=== PATIENT | male | born 1995 | race American Indian/Alaskan Native ===

== ENCOUNTER 2018-11-26 20:39 | Inpatient (IN) | payer BC ==
--- NOTE | 2018-11-26 21:21 | Emergency Department Report ---
Blank Doc - Documentation Documentation: This is a 23-year-old male that presents with URI symptoms. This initial assessment/diagnostic orders/clinical plan/treatment(s) is/are subject to change based on patient's health status, clinical progression and re- assessment by fellow clinical providers in the ED. Further treatment and workup at subsequent clinical providers discretion. Patient/guardians urged not to elope from the ED as their condition may be serious if not clinically assessed and managed. Initial orders include: 1- Patient sent to [facility] for further evaluation and treatment 2- CXR
[2018-11-26] MEDS ORDERED: DECADRON IM ONE (21:24)
[2018-11-26] MEDS: ATROVENT IH ONE ×2 (21:37→21:53)
[2018-11-26] MEDS: PROVENTIL IH ONE ×2 (21:37→21:49)
--- NOTE | 2018-11-26 23:06 | XRay Report ---
PROCEDURE: XR CHEST ROUTINE 2V TECHNIQUE: 2 views HISTORY: cough COMPARISONS: None FINDINGS: Heart and mediastinum are normal. Lungs are clear. There is no focal infiltrate. No pleural effusion or pneumothorax. Soft tissue and skeletal structures are intact. IMPRESSION: Normal chest x-ray. This document is electronically signed by Joel Lange MD., November 26 2018 11:04:19 PM ET
[2018-11-27] MEDS ORDERED: DUONEB *Not for PRN Use IH ONE (01:14)
[2018-11-27] MEDS ORDERED: MAGNESIUM SULFATE 2GM/50ML 2 GM/50 ML BAG IV ONE (01:15)
--- NOTE | 2018-11-27 01:18 | Emergency Department Report ---
- General Chief Complaint: Upper Respiratory Infection Stated Complaint: TEDDY/BAD COUGH/BODYACHE Time Seen by Provider: 11/26/18 21:20 Source: patient Mode of arrival: Ambulatory Limitations: No Limitations - History of Present Illness Initial Comments: Pt is a 23 yo male who presents to the ED with c/o a cough that began two weeks ago. He has associated mucus production and chest discomfort only with coughing. He has wheezing, congestion, and SOB. He states he was seen at [place] about two weeks ago and given an albuterol inhaler but has not been tested for asthma with PFTs. He states he used his albuterol inhaler once today. He denies any PMHx. He does not have a PCP. Pt is a smoker. - Related Data Allergies Allergy/AdvReac Type Severity Reaction Status Date / Time No Known Allergies Allergy Verified 11/27/18 04:16 ED Review of Systems ROS: Stated complaint: TEDDY/BAD COUGH/BODYACHE Other details as noted in HPI Comment: All other systems reviewed and negative ED Past Medical Hx - Past Medical History Previous Medical History?: No - Surgical History Past Surgical History?: No - Social History Smoking Status: Current Every Day Smoker Substance Use Type: None ED Physical Exam - General Limitations: No Limitations General appearance: alert, in no apparent distress - Head Head exam: Present: atraumatic, normocephalic - Eye Eye exam: Present: normal appearance - ENT ENT exam: Present: mucous membranes moist - Respiratory Respiratory exam: Present: respiratory distress (moderate), wheezes, rales (at the bases ). Absent: rhonchi, stridor, chest wall tenderness, accessory muscle use, decreased breath sounds, prolonged expiratory (mild expiratory wheezing) - Cardiovascular Cardiovascular Exam: Present: regular rate, normal rhythm, normal heart sounds. Absent: systolic murmur, rubs, gallop - Neurological Exam Neurological exam: Present: alert, oriented X3 - Psychiatric Psychiatric exam: Present: normal affect, normal mood - Skin Skin exam: Present: warm, dry, intact ED Course Vital Signs 11/26/18 11/26/18 11/26/18 21:20 21:48 22:16 Temperature 98 F Pulse Rate 62 Pulse Rate [ 56 L 94 H Bilateral Throughout] Respiratory 20 Rate Respiratory 19 21 Rate [Bilateral Throughout] Blood Pressure 118/78 Blood Pressure [Right] O2 Sat by Pulse Oximetry 11/27/18 11/27/18 11/27/18 01:24 01:48 03:00 Temperature Pulse Rate 112 H Pulse Rate [ 68 72 Bilateral Throughout] Respiratory 18 Rate Respiratory 21 20 Rate [Bilateral Throughout] Blood Pressure Blood Pressure [Right] O2 Sat by Pulse 98 Oximetry 11/27/18 11/27/18 04:57 05:23 Temperature 98.4 F Pulse Rate 106 H 92 H Pulse Rate [ Bilateral Throughout] Respiratory 17 17 Rate Respiratory Rate [Bilateral Throughout] Blood Pressure Blood Pressure 115/69 [Right] O2 Sat by Pulse 94 96 Oximetry - Reevaluation(s) Reevaluation #1: 11/27/18 01:19 pt given nebulizer tx in triage, still has mild wheeze on exam, will give neb tx and magnesium Reevaluation #2: 11/27/18 02:43 given another neb tx and magnesium, will admit to hospitalist for further evaluation. - Consultations Consultation #1: 11/27/18 03:[address] Pitts, hospitalist who will admit patient and resume care. ED Medical Decision Making - Lab Data oxygen saturation is 98% on RA - Radiology Data Radiology results: report reviewed HISTORY: cough COMPARISONS: None FINDINGS: Heart and mediastinum are normal. Lungs are clear. There is no focal infiltrate. No pleural effusion or pneumothorax. Soft tissue and skeletal structures are intact. IMPRESSION: Normal chest x-ray. This document is electronically signed by Joel Lange MD., November 26 2018 11:04:19 PM ET - Medical Decision Making Pt is a 23 yo male who presents to the ED with c/o a cough that began two weeks ago. He has associated mucus production and chest discomfort only with coughing. He has wheezing, congestion, and SOB. He states he was seen at [place] about two weeks ago and given an albuterol inhaler but has not been tested for asthma with PFTs. He states he used his albuterol inhaler once today. He denies any PMHx. He does not have a PCP. Pt is a smoker. CXR with hyperinflation otherwise no acute process. Pt given neb treatments x2, dexamethasone 10 mg, ceftriazone, and 2g of magnesium. pt with continued wheezing and decreased air movement. pt will be admitted for asthma exacerbation and acute bronchitis to Dr. Pitts, Hospitalist for further management. - Differential Diagnosis asthma exacerbation, bronchitis, PNA, URI, Viral syndrome Critical care attestation.: If time is entered above; I have spent that time in minutes in the direct care of this critically ill patient, excluding procedure time. ED Disposition Clinical Impression: Bronchitis Asthma exacerbation Qualifiers: Asthma severity: unspecified severity Asthma persistence: unspecified Qualified Code(s): J45.901 - Unspecified asthma with (acute) exacerbation Disposition: OP ADMIT IP TO THIS HOSP Is pt being admited?: Yes Does the pt Need Aspirin: No Condition: Stable Time of Disposition: 03:13
[2018-11-27] MEDS ORDERED: ROCEPHIN IM ONE (02:41)
[2018-11-27] MEDS ORDERED: XYLOCAINE 1% MPF 5 mL INFILTRATI ONE (02:41)
[2018-11-27] MEDS ORDERED: SODIUM CHLORIDE FLUSH SYRINGE 10 ML IV PRN (04:05)
[2018-11-27] MEDS ORDERED: TYLENOL PO PRN (04:05)
[2018-11-27] MEDS ORDERED: ZOFRAN IV PRN (04:05)
--- NOTE | 2018-11-27 04:08 | History and Physical Report ---
History of Present Illness Date of examination: 11/27/18 History of present illness: 23-year-old man comes emergency room complaining of shortness of breath over the last 3 months. Also complaining of cough productive of yellow phlegm, body aches, wheezing. He stated he was seen by a physician who gave him Hubert zambrano, he had mild relief of his symptoms Review of systems Constitutional: no weight loss, chills, fever Ears, eyes, nose, mouth and throat: no nasal congestion, no nasal discharge, no sinus pressure, no vision change, no red eye. Neck: No neck pain or rigidity. Cardiovascular: no palpitations, chest pain Respiratory: + cough, shortness of breath Gastrointestinal: no hematochezia, abdominal pain Genitourinary : no frequency , no hematuria Musculoskeletal: no joint swelling or muscle ache Integumentary: no rash, no pruritis Neurological: no parathesias, no focal weakness Endocrine: no cold or heat intolerance, no polyuria or polydipsia Hematologic/Lymphatic: no easy bruising, no easy bleeding, no gland swelling Allergic/Immunologic: no urticaria, no angioedema. PAST MEDICAL HISTORY: None PAST SURGICAL HISTORY: None SOCIAL HISTORY: Denies alcohol, drugs, +tobacco FAMILY HISTORY: Hypertension Medications and Allergies Allergies Allergy/AdvReac Type Severity Reaction Status Date / Time No Known Allergies Allergy Verified 11/27/18 04:16 Active Meds: Active Medications Acetaminophen (Tylenol) 650 mg PO Q4H PRN PRN Reason: Pain MILD(1-3)/Fever >100.5/GONZALEZ Albuterol/Ipratropium (Duoneb *Not For Prn Use*) 1 ampul IH Q6HRT [facility] Enoxaparin Sodium (Lovenox) 30 mg SUB-Q QDAY [facility] Methylprednisolone Sodium Succinate (Solu-Medrol) 125 mg IV Q6H [facility] Ondansetron HCl (Zofran) 4 mg IV Q8H PRN PRN Reason: Nausea And Vomiting Oxycodone/Acetaminophen (Percocet 5/325) 1 tab PO Q6H PRN PRN Reason: Pain, Moderate (4-6) Sodium Chloride (Sodium Chloride Flush Syringe 10 Ml) 10 ml IV BID [facility] Sodium Chloride (Sodium Chloride Flush Syringe 10 Ml) 10 ml IV PRN PRN PRN Reason: LINE FLUSH Exam - Physical Exam Narrative exam: General Apperance: The patient lying in bed, breathing comfortable HEENT: Normocephalic, atraumatic. Pupils equally round and reactive to light, EOMI, no sclericterus or JVD or thyromegaly or nodule. , no carotid bruit, mucous membranes moist, no exudate or erythema Heart: S1-S2, regular is rhythm Lungs: Wheezing bilaterally, breathing comfortable Abdomen: Positive bowel sounds, soft, nontender, nondistended, no organomegaly Extremities: No edema cyanosis clubbing Skin: no rash, nodule, warm and dry Neuro: cranial nerves 2-12 intact, speech is fluent, motor/sensory intact - Constitutional Vitals: Temp Pulse Resp BP Pulse Ox 98 F 72 20 118/78 11/26/18 21:20 11/27/18 01:48 11/27/18 01:48 11/26/18 21:20 Results - Imaging and Cardiology Chest x-ray: image reviewed Assessment and Plan Assessment Acute asthma exacerbation Plan Admit to medicine Sarcoidosis steroids, Zithromax, nebulizer treatments, DVT prophylaxis
[2018-11-27] MEDS ORDERED: SOLU-Medrol ONE (05:28)
[2018-11-27] MEDS: SOLU-Medrol IV SCH ×6 (05:28→23:42)
[2018-11-27] MEDS: DUONEB *Not for PRN Use IH SCH ×3 (08:29→20:22)
[2018-11-27] MEDS ORDERED: ZITHROMAX 500 MG in NACL 0.9% 250ML 250 ML IV SCH (10:00)
[2018-11-27] MEDS: SODIUM CHLORIDE FLUSH SYRINGE 10 ML IV SCH ×2 (11:46→22:00)
[2018-11-27] MEDS: LOVENOX SUB-Q SCH (11:46)
[2018-11-27] MEDS ORDERED: PROVENTIL IH PRN (12:00)
[2018-11-27 15:07] LABS: BUN/Creatinine Ratio 13; Blood Urea Nitrogen 12 mg/dL (9-20); Calcium 9.7 mg/dL (8.4-10.2); Hemolysis Index 13
--- NOTE | 2018-11-27 17:05 | Cat Scan Report ---
PROCEDURE: CT ANGIO CHEST HISTORY: SOB FINDINGS: Contrast-enhanced CT angiography of the chest was performed following the intravenous administration of iodinated contrast. Sagittal and coronal MIP three-dimensional reformatted images were generated. The examination is somewhat limited by respiratory motion. The peripheral arterial vessels in particu lar are not well-evaluated, but no CT evidence of pulmonary thromboembolic disease is seen. There is no aortic dissection. There is no consolidative pulmonary infiltrate. There is no pleural or pericardial effusion. In the upper abdomen the adrenal glands are within normal limits. The visualized portion of the liver and spleen are unremarkable. IMPRESSION: No CT evidence of pulmonary thromboembolic disease This document is electronically signed by Benjamin Siddiqui MD., November 27 2018 05:03:35 PM ET
--- NOTE | 2018-11-27 17:35 | Progress Note ---
Assessment and Plan Assessment and plan: Patient is a 23 yo man h/o tobacco dependency and without chronic medical problems who presented with severe sob. He was admitted for asthma exacerabation. CTA chest: unremarkable -Acute asthma exacerbation: treat with steroids, BD -Tobacco dependency: drug counselor on stopping prolonged inpatient services 32 minutes History Interval history: Patient was seen and examined. Follow-up on current diagnosis of sob, still severe. Overnight uneventful. Patient denies any chest pain, nausea/vomiting or severe headaches. Imaging, nursing note, chart, labs and old chart reviewed. Discussed with patient. Hospitalist Physical - Physical exam Narrative exam: Gen: WDWN, NAD, Awake, Alert, Orientated HEENT: NCAT, EOMI, PERRL, OP Clear Neck: supple, no adenopathy, no thyromegaly, no JVD CVS/Heart: RRR, normal S1S2, pulses present bilaterally Chest/Lungs: diminished and wheezing bilateral, Symmetrical chest expansion, good air entry bilaterally GI/Abdomen: soft, NTND, good bowel sounds, no guarding or rebound /Bladder: no suprapubic tenderness, no CVA or paraspinal tenderness Extermity/Skin: no c/c/e, no obvious rash MSK: FROM x 4 Neuro: CN 2-12 grossly intact, no new focal deficits Psych: calm - Constitutional Vitals: Temp Pulse Resp BP Pulse Ox 98.6 F 82 18 145/69 97 11/27/18 12:17 11/27/18 13:54 11/27/18 13:54 11/27/18 12:17 11/27/18 13:33 Results - Labs CBC & Chem 7: 11/27/18 14:00 Labs: Laboratory Last Values Sodium 141 mmol/L (137-145) 11/27/18 14:00 Potassium 4.0 mmol/L (3.6-5.0) 11/27/18 14:00 Chloride 101.6 mmol/L (98-107) 11/27/18 14:00 Carbon Dioxide 25 mmol/L (22-30) 11/27/18 14:00 Anion Gap 18 mmol/L 11/27/18 14:00 BUN 12 mg/dL (9-20) 11/27/18 14:00 Creatinine 0.9 mg/dL (0.8-1.5) 11/27/18 14:00 Estimated GFR > 60 ml/min 11/27/18 14:00 BUN/Creatinine Ratio 13 % 11/27/18 14:00 Glucose 135 mg/dL (75-100) H 11/27/18 14:00 Calcium 9.7 mg/dL (8.4-10.2) 11/27/18 14:00 Active Medications - Current Medications Current Medications: Generic Name Dose Route Start Last Admin Trade Name Freq PRN Reason Stop Dose Admin Acetaminophen 650 mg 11/27/18 04:05 Tylenol PO Q4H PRN Pain MILD(1-3)/Fever >100.5/GONZALEZ Albuterol 2.5 mg 11/27/18 12:00 11/27/18 11:15 Proventil IH 2.5 mg Q4HRT PRN Administration Shortness Of Breath Albuterol/Ipratropium 1 ampul 11/27/18 08:00 11/27/18 13:44 Duoneb *Not For Prn Use* IH 1 ampul Q6HRT ROSANGELA Administration Azithromycin 500 mg 11/28/18 10:00 Zithromax PO 12/01/18 10:01 QDAY ROSANGELA Enoxaparin Sodium 30 mg 11/27/18 10:00 11/27/18 11:46 Lovenox SUB-Q 30 mg QDAY ROSANGELA Administration Methylprednisolone Sodium Succinate 125 mg 11/27/18 05:00 11/27/18 11:46 Solu-Medrol IV 125 mg Q6HR ROSANGELA Administration Ondansetron HCl 4 mg 11/27/18 04:05 Zofran IV Q8H PRN Nausea And Vomiting Oxycodone/Acetaminophen 1 tab 11/27/18 04:05 Percocet 5/325 PO Q6H PRN Pain, Moderate (4-6) Sodium Chloride 10 ml 11/27/18 10:00 11/27/18 11:46 Sodium Chloride Flush Syringe 10 Ml IV 10 ml BID ROSANGELA Administration Sodium Chloride 10 ml 11/27/18 04:05 Sodium Chloride Flush Syringe 10 Ml IV PRN PRN LINE FLUSH Nutrition/Malnutrition Assess - Dietary Evaluation Nutrition/Malnutrition Findings: Nutrition Notes Start: 11/27/18 15:00 Freq: Status: Active Protocol: Document 11/27/18 15:00 (Rec: 11/27/18 15:02 [id number]) Nutrition Notes Initial or Follow up Brief Note Height 5 ft 5 in [place] Body Weight (kg) 61.81 Subjective/Other Information Screened for low BMI. Pt does not appear to have BMI of 0.2 or height of 55ft Pt stated that he is 5ft 5in. Corrected accordingly in record.
[2018-11-27] MEDS: BROVANA NEBU IH SCH (20:22)
[2018-11-27] MEDS: PULMICORT IH SCH (20:22)
[2018-11-27] MEDS: PERCOCET 5/325 PO PRN (21:54)
[2018-11-27] MEDS ORDERED: SINGULAIR PO SCH (22:00)
[2018-11-28] MEDS: DUONEB *Not for PRN Use IH SCH ×3 (02:52→13:38)
[2018-11-28] MEDS: PERCOCET 5/325 PO PRN (05:48)
[2018-11-28] MEDS: SOLU-Medrol IV SCH ×2 (05:48→11:23)
[2018-11-28 06:37] LABS: Hematocrit 42.4 % (35.5-45.6); Hemoglobin 13.7 gm/dl (11.8-15.2); Mean Corpuscular HGB Conc 32 % (32-34); Mean Corpuscular Volume 84 fl (84-94); Platelet Count 190 K/mm3 (140-440); Red Blood Count 5.04 M/mm3 (3.65-5.03); Red Cell Distribution Width 14.9 % (13.2-15.2)
[2018-11-28 06:56] LABS: BUN/Creatinine Ratio 16; Blood Urea Nitrogen 14 mg/dL (9-20); Calcium 9.5 mg/dL (8.4-10.2); Hemolysis Index 4
[2018-11-28 07:31] LABS: Basophils % (Manual) 0 % (0.0-1.8); Eosinophils % (Manual) 0 % (0.0-4.3); Total Cells Counted 100
[2018-11-28 07:32] LABS: Platelet Estimate Cons; RBC Morphology Normal
[2018-11-28] MEDS: BROVANA NEBU IH SCH (09:13)
[2018-11-28] MEDS: PULMICORT IH SCH (09:13)
[2018-11-28] MEDS ORDERED: ZITHROMAX PO SCH (10:00)
[2018-11-28] MEDS: SODIUM CHLORIDE FLUSH SYRINGE 10 ML IV SCH (10:47)
[2018-11-28] MEDS: LOVENOX SUB-Q SCH (10:49)
[2018-11-28 12:09] VITALS: BP 119/60
--- NOTE | 2018-11-28 12:27 | Discharge Summary ---
Providers - Providers Date of Admission: 11/27/18 04:05 Date of discharge: 11/28/18 Attending physician: KATIE GIBBS [facility] Condition: Stable Hospital course: Patient is a 23 yo man h/o tobacco dependency and without chronic medical problems who presented with severe sob. He was admitted for asthma exacerab ation. He is doing much better and ask to go home. He has a deep non productive cough. WBC elevated most likely from the steroids. He denies dysuria, diarrhea. He is walking the entire floor multiple times without problems. * CTA chest: unremarkable -Acute asthma exacerbation, severe persistent: treat with steroids, BD, added inhaled GC and LABA and singulair. Home with nebulizer and bd -Tobacco dependency: admitting counselor on stopping -Asthmatic bronchitis: home with abx, patient has insurance, will give Levaquin -SIRS without organ dysfunction, most likely poa Disposition: DC-01 TO HOME OR SELFCARE Time spent for discharge: 36 minutes Core Measure Documentation - Palliative Care Palliative Care/ Comfort Measures: Not Applicable - Core Measures Any of the following diagnoses?: none - VTE Discharge Requirements Deep Vein Thrombosis/Pulmonary Embolism Present on Admission: No Has pt received <5 days of overlap therapy or INR<2.0: No Anticoagulant overlap therapy prescribed at discharge: No Contraindication No Overlap Therapy order at DC: Not Indicated Exam - Physical Exam Narrative exam: Gen: WDWN, NAD, Awake, Alert, Orientated HEENT: NCAT, EOMI, PERRL, OP Clear Neck: supple, no adenopathy, no thyromegaly, no JVD CVS/Heart: RRR, normal S1S2, pulses present bilaterally Chest/Lungs: diminished and wheezing bilateral, Symmetrical chest expansion, good air entry bilaterally GI/Abdomen: soft, NTND, good bowel sounds, no guarding or rebound /Bladder: no suprapubic tenderness, no CVA or paraspinal tenderness Extermity/Skin: no c/c/e, no obvious rash MSK: FROM x 4 Neuro: CN 2-12 grossly intact, no new focal deficits Psych: calm - Constitutional Vitals: Temp Pulse Resp BP Pulse Ox 98.2 F 68 16 119/60 96 11/28/18 11:19 11/28/18 11:19 11/28/18 11:19 11/28/18 11:19 11/28/18 11:19 Plan Activity: other (no strenous activity until cleared by pcp) Diet: regular Special Instructions: smoking cessation Follow up with: LUDWIN BAER MD [Staff Physician] - 7 Days Forms: Work/School Release Form Prescriptions: Montelukast [Singulair] 10 mg PO QHS #30 tablet levoFLOXacin [Levaquin] 750 mg PO QDAY #5 tablet methylPREDNISolone [Medrol Dose Bairon] 1 dose PO BID #1 pack oxyCODONE /ACETAMINOPHEN [Percocet 5/325 mg] 1 tab PO Q6H PRN #8 tablet PRN Reason: Pain , Severe (7-10) ALBUTEROL NEB's [Proventil 0.083% NEBS] 2.5 mg IH Q4HRT PRN #30 nebu PRN Reason: Shortness Of Breath Budesonide/Formoterol Fumarate [Symbicort 160-4.5 Mcg Inhaler] 2 puff IH BID #1 hfa.aer.ad ALBUTEROL Inhaler(NF) [VENTOLIN Inhaler(NF)] 2 puff IH Q4H PRN #1 device PRN Reason: Wheezing
[2018-11-29] MEDS ORDERED: LOVENOX SUB-Q SCH (10:00)
== END 2018-11-28 14:42 | disposition home or self-care (01) | DRG 202 ==
LOC: ED 20:39 → 3A 11-27 04:05
PROVIDERS: ADMIT Internal Medicine; ATTEND Internal Medicine
DX: J45.51 Severe persistent asthma with (acute) exacerbation (principal); R65.10 Systemic inflammatory response syndrome (SIRS) of non-infectious origin without acute organ dysfunction; F17.200 Nicotine dependence, unspecified, uncomplicated; T38.0X5A Adverse effect of glucocorticoids and synthetic analogues, initial encounter; Y92.89 Other specified places as the place of occurrence of the external cause; Z71.6 Tobacco abuse counseling; Z82.49 Family history of ischemic heart disease and other diseases of the circulatory system
CPT/HCPCS: 36415; 71046; 71275; 80048; 85007; 85025; 94640; 96372; 99285; 99406; G0378; J0456; J0696; J1100; J1650; J2930; J3475; J7050; Q9967